=== PATIENT | female | born 1970 | race Caucasian/White ===

== ENCOUNTER 2022-03-23 13:45 | Emergency (ER) | payer OTHER, SELFPAY ==
--- NOTE | ~2022-03-23 | XR_ITS ---
EXAMINATION: XR SHOULDER, LEFT CLINICAL INFORMATION: Bruising to the right upper humerus COMPARISON: None TECHNIQUE: AP external rotation, Grashey, scapular Y, and axillary views of the left shoulder. FINDINGS: Comminuted, significantly displaced left humeral neck fracture. The humeral head is dislocated posteriorly. Multiple small bone fragments in the region. XR/XR shoulder LT min 2V IMPRESSION: Severe left humeral neck fracture.
--- NOTE | ~2022-03-23 | XR_ITS ---
EXAMINATION: XR SHOULDER, RIGHT CLINICAL INFORMATION: Bruising to the upper humeral COMPARISON: None TECHNIQUE: AP external rotation, Grashey, scapular Y, and axillary views of the right shoulder. FINDINGS: Severe humeral neck/head fracture with multiple comminuted fragments. The humeral head is dislocated posteriorly. The acromioclavicular joint is intact. XR/XR shoulder RT min 2V IMPRESSION: Severe right humeral head/neck fracture with the humeral head dislocated posteriorly.
[2022-03-23 13:50] VITALS: BP 126/66; BP 152/92; PULSE 89; PULSE 90; RESP 17; TEMP 36.7; O2SAT 98; BMI 32.8
--- NOTE | 2022-03-23 15:36 | ED.GENADULT ---
HPI - General Adult General Chief complaint: Fall Stated complaint: ALEX SHOULDER PAIN S/P FALL OFF COUCH T-1 PER EMS Time Seen by Provider: 03/23/22 15:36 Source: patient and EMS Mode of arrival: EMS Limitations: no limitations History of Present Illness HPI narrative: Pt is 51 yo female w/ uncontibutory PMHx presenting w/ bilat shoulder pain x12 hrs post fall. She states that she was sleeping on the couch and suddenly woke up on the floor around 4:30 AM. She states that she does not remember falling and did not wake up until after the fall had occurred. She reports that she has a hx of sleepwalking but her episodes are infrequent. She states that the only complaint she has is pain in both of her shoulders. She denies headache, dizziness, lightheadedness, abd pain, or injury to any other area of her body. She states that everything makes her pain worse, and that she gets mild relief if she can completely relax all of the muscles in her arms. She denies any use of medications for pain. She denies numbness/tingling in either of her arms. She is not able to move either arm secondary to pain. She denies any hx surgery to either arm. She denies use of anticoagulants. Onset (ago): hour(s) (12) Location: upper extremity (bilateral) Radiation: non-radiation Severity: moderate Severity scale (1-10): 6 Quality: aching and sharp Pain Consistency: constant Relieving factors: rest Exacerbating factors: movement Associated symptoms: denies other symptoms Treatments prior to arrival: none Related Data Allergies Allergy/AdvReac Type Severity Reaction Status Date / Time No Known Allergies Allergy Verified 03/23/22 15:52 Review of Systems Constitutional: Constitutional: Reports no additional constitutional complaints, Denies chills, Denies fever(s) and Denies night sweats Eyes: Eyes: Reports no additional eye complaints, Denies blurry vision, Denies change in vision, Denies diplopia, Denies eye discharge, Denies loss of vision and Denies eye pain ENT: Denies dizziness Cardiovascular: Cardiovascular: Reports no additional cardiovascular complaints, Denies chest pain, Denies lightheadedness, Denies Loss of Consciousness and Denies dyspnea Respiratory: Respiratory: Reports no additional respiratory complaints and Denies dyspnea Gastrointestinal: Gastrointestinal: Reports no additional gastrointestinal complaints, Denies abdominal pain, Denies melena, Denies hematochezia, Denies change in bowel habits and Denies change in stool character Genitourinary: Genitourinary: Denies hematuria, Denies urinary frequency, Denies dysuria, Denies urinary incontinence, Denies urinary hesitancy and Denies urinary urgency Musculoskeletal: Musculoskeletal: Reports no additional musculoskeletal complaints, Denies numbness and Denies tingling Comments: bilateral shoulder pain Neurologic: Denies dizziness, Denies loss of vision, Denies numbness and Denies tingling Psychiatric: Psychiatric: Reports no additional psychiatric complaints Endocrine: Endocrine: Reports no additional endocrine complaints Hematologic/Lymphatic: Hematologic/Lymphatic: Reports no additional hematologic/lymphatic complaints Allergic/Immunologic: Allergic/Immunologic: Reports no additional allergic/immunologic complaints PMFSH Past Medical History Attestation statement: The following information was validated with the patient. Source: old records reviewed Social History Social History Advance Directives: No Physical Exam ED Vital Signs: Vital Signs - 24 hr 03/23/22 13:50 03/23/22 15:57 03/23/22 16:00 Temperature 98.1 F 98.6 F Pulse Rate 89 94 89 Respiratory Rate 17 20 16 Blood Pressure 152/92 H 153/86 H 152/94 H Pulse Oximetry 98 97 98 Oxygen Delivery Method Room Air Room Air Room Air BMI result Body Mass Index 32.8 Const General: cooperative, no acute distress, alert and awake Nutritional Appearance: well nourished Orientation/consciousness: patient oriented x3 Limitations: no limitations [facility] Head: Yes normal to inspection and Yes atraumatic Ears: hearing grossly normal bilaterally and external ears normal General nose exam: Normal external nose present, no nasal discharge noted and no epistaxis Face and sinus: Yes normal facial exam, No abrasion and No laceration Mouth: Normal oral and palatal mucosa present, no drooling and no muffled voice Eyes General: appearance normal, both eyes and all related structures Periorbital: periorbital findings normal Eyelids: Yes eyelids normal Conjunctivae: conjunctivae normal Pupils: Equal, round and reactive pupils present EOM: EOMs intact bilaterally Neck Neck: Yes normal visual inspection, Yes full ROM and Yes no lymphadenopathy Chest Chest palpation & inspection: normal inspection of the chest Resp Effort & Inspection: normal respiratory effort and able to speak in complete sentences Auscultation: clear to auscultation bilaterally Cardio Rate: regular rate Rhythm: regular rhythm GI Inspection: Yes normal to inspection Neuro General: patient oriented x3 and moves all extremities Cranial nerves: Yes Equal, round and reactive pupils present Cognition (Neuro): normal cognition Motor exam (neuro): 5/5 motor strength present throughout Sensory Exam: Normal double simultaneous stimulation for sensation Coordination: [id number] test normal Extrem Other: mild bruising to bilateral upper arms, decreased ROM of bilateral upper arms secondary to pain. General: Yes capillary refill normal Psych Appearance: grossly normal Mental Status: mental status grossly normal Affect: normal affect Attitude: cooperative Thought process: Normal thought process present Thought content: Normal thought content present Insight: Good insight present (Psych) Medications Administered Discontinued Medications Generic Name Dose Route Start Last Admin Trade Name Freq PRN Reason Stop Dose Admin Hydrocodone Bitart/Acetaminophen 1 tab 03/23/22 15:52 03/23/22 15:59 Hydrocodone Bit/Acetam 5/325 Tablet PO 03/23/22 15:53 1 tab ONCE ONE Administration Procedures Orthopedic Splinting/Casting Injury #1: Side: right Upper Extremity Injury Location: shoulder Upper Extremity Immobilizer: sling/shoulder immobilizer Injury #2: Side: left Upper Extremity Injury Location: shoulder Upper Extremity Immobilizer: sling/shoulder immobilizer Medical Decision Making [facility] Narrative Medical decision making narrative: Patient is a 51 year old assigned female at with a history of sleep walking presenting to the emergency department today with bilateral shoulder pain. Patient's physical exam showed minimal bruising to bilateral upper arms with minimal ROM of the upper arms secondary to pain. Patient's circulation, strength, and sensation was in tact to both upper extremities. Patient's right shoulder x-ray showed a severe right humeral head/neck fracture with the humeral head dislocated posteriorly. Patient's left shoulder x-ray showed a comminuted, significantly displaced, left humeral neck fracture with the humeral head dislocated posteriorly and multiple small bone fragments in the region. I again spoke with the patient and her live in boyfriend at the bed side who both confirmed, together and separately, the mechanism of the patient's injury. I explained to them both that this mechanism is not consistent with the injuries the patient has sustained. They both adamantly deny any other explanation for the injuries. I spoke to the orthopedic provider low emission automobile designer who recommended each arm be placed in a sling and the patient be evaluated by physical therapy for potential rehab placement and that they follow up on an outpatient basis with the orthopedic group. I explained my physical exam findings as well as all test results to the patient and the patient's boyfriend. I answered all questions asked by the patient and the patient's boyfriend. Patient verbalized agreement and understanding with this treatment plan and being evaluated by physical therapy. Medical Records Medical records reviewed: Yes I reviewed the patient's medical records. Imaging Data Left shoulder x-ray: Attestation: I personally reviewed and interpreted this imaging study as follows: My impression: Humeral fracture. Radiologist's impression: EXAMINATION: XR SHOULDER, LEFT CLINICAL INFORMATION: Bruising to the right upper humerus? COMPARISON: None? TECHNIQUE: AP external rotation, Grashey, scapular Y, and axillary views of the left shoulder. FINDINGS: Comminuted, significantly displaced left humeral neck fracture. The humeral head is dislocated posteriorly. Multiple small bone fragments in the region. XR/XR shoulder LT min 2V IMPRESSION: Severe left humeral neck fracture. Dictated By: Liliam Crespo MD Signed By: Electronically signed by Liliam Crespo MD 03/23/22 1637 Right shoulder x-ray: Attestation: I personally reviewed and interpreted this imaging study as follows: My impression: Humeral fracture. Radiologist's impression: EXAMINATION: XR SHOULDER, RIGHT CLINICAL INFORMATION: Bruising to the upper humeral? COMPARISON: None? TECHNIQUE: AP external rotation, Grashey, scapular Y, and axillary views of the right shoulder. FINDINGS: Severe humeral neck/head fracture with multiple comminuted fragments. The humeral head is dislocated posteriorly. The acromioclavicular joint is intact. XR/XR shoulder RT min 2V IMPRESSION: Severe right humeral head/neck fracture with the humeral head dislocated posteriorly. Dictated By: Liliam Crespo MD Signed By: Electronically signed by Liliam Crespo MD 03/23/22 7321 Discharge Plan Discharge Clinical Impression: Fracture of humeral head, right, closed, Fracture of humeral head, left, closed Patient Disposition: Still a Patient Print Language: Arabic
[2022-03-23 15:57] VITALS: BP 153/86; PULSE 94; RESP 20; O2SAT 97
[2022-03-23] MEDS: HYDROcodone Bit/Acetam 5/325 TABLET 1 TAB PO (15:59)
[2022-03-23 16:00] VITALS: BP 152/94; PULSE 89; RESP 16; TEMP 37; O2SAT 98
--- NOTE | 2022-03-23 17:10 | PC.NURSE ---
Provider aware of BP
--- NOTE | 2022-03-23 17:38 | PC.NURSE ---
oxycodone not loaded in pyxis. Pharmacy notifed.
[2022-03-23 17:39] LABS: COVID-19 Test Negative (Negative); IDNOW Serial# 16C4AD1C
[2022-03-23] MEDS: oxyCODONE HCl Immed Release 15 MG TABLET PO (17:47)
[2022-03-23 20:22] VITALS: BP 131/73; PULSE 96; RESP 17; TEMP 37; O2SAT 94
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
--- NOTE | 2022-03-23 22:00 | PC.NURSE ---
Patient to and from restroom with steady gait- she needs 1-assist to help her pull her pants/underpants down/up.
[2022-03-23 22:41] VITALS: BP 146/91; PULSE 88; TEMP 37.2; O2SAT 98
[2022-03-23 22:46] VITALS: BP 165/93; RESP 26
--- NOTE | 2022-03-23 22:48 | PC.NURSE ---
Patient states she was on the couch last night and woke up on the floor. She does not recall how she may have fallen. Patient states she drinks multiple alcoholic drinks (hard liquor) daily and that may have been the cause of her fall. Patient is calm and cooperative.
[2022-03-23] MEDS: oxyCODONE HCl Immed Release 5 MG TABLET PO (23:13)
[2022-03-24] VITALS (7 sets, daily range): BP systolic 138–193; BP diastolic 76–105; PULSE 85–101; RESP 12–17; TEMP 37–37.3; O2SAT 94–97
[2022-03-24] MEDS: oxyCODONE HCl Immed Release 5 MG TABLET PO ×4 (03:34→21:01)
--- NOTE | 2022-03-24 04:43 | PC.NURSE ---
Patient resting quietly, no apparent distress, currently watching tv
[2022-03-24] MEDS: Loratadine 10 MG TABLET PO ×2 (08:43→21:01)
--- NOTE | 2022-03-24 10:16 | MHC.CM.ED ---
Patient remains in ER. Physical therapy eval completed. Rehab is recommended. [facility] is not able to offer a bed. Clinical updates sent to Miguel. Continue to monitor for d/c needs.
--- NOTE | 2022-03-24 11:43 | PC.NURSE ---
Alert and oriented, respirations even and unlabored. Pt resting in bed watching tv. Ambulates with 1 assistance
--- NOTE | 2022-03-24 19:45 | PC.NURSE ---
Pt requesting Tylenol. Attending MD notified, order placed. Pt has no other complaints at this time.
[2022-03-24] MEDS: Acetaminophen 325 MG TABLET 650 MG PO (19:55)
[2022-03-24] MEDS: Cyanocobalamin (Vitamin B-12) 1,000 MCG TABLET 1000 MCG PO (21:00)
[2022-03-24] MEDS: Omeprazole 20 MG CAPSULE.DR PO (21:00)
--- NOTE | 2022-03-24 22:25 | P.CONOP_ITS ---
History of Present Illness HPI Consult date: 03/24/22 Chief complaint: ALEX SHOULDER PAIN S/P FALL OFF COUCH T-1 PER EMS Narrative: 51 yo female presented to the ED with bilat shoulder pain. She states one day prior she woke up at 0400 on the floor with extreme shoulder pain. She states sh e fell twice, but cannot recall how she fell, if it was one fall after the other, or any other details leading up to the fall. While in the ED, xrays of the shoulders were significant for right proximal humerus fracture and left proximal humerus fracture with displaced of the humeral head posteriorly. 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 She lives at home with her boyfriend. Review of Systems Review of Systems: per [facility] Social History Social History Alcohol intake: current Alcohol intake frequency: 3 or more drinks per day Alcohol type: hard liquor Smoked in Last 30 Days: Yes Use of substances other than those prescribed or required for medical reasons: No Advance Directives: No Meds Allergies Allergy/AdvReac Type Severity Reaction Status Date / Time No Known Allergies Allergy Verified 03/23/22 15:52 Active Medications: Current Medications Acetaminophen (Acetaminophen 325 Mg Tablet) 650 mg PO Q6H PRN PRN Reason: Pain, Moderate (Pain Scale 4-6 Last Admin: 03/24/22 19:55 Dose: 650 mg Cyanocobalamin (Cyanocobalamin (Vitamin B-12) 1,000 Mcg Tablet) 1,000 mcg PO BEDTIME [facility] Last Admin: 03/24/22 21:00 Dose: 1,000 mcg Loratadine (Loratadine 10 Mg Tablet) 10 mg PO BEDTIME [facility] Last Admin: 03/24/22 21:01 Dose: 10 mg Non-Formulary Medication (Zolmitriptan) 5 mg PO DAILY MRX1 PRN PRN Reason: Migraine Headache Omeprazole (Omeprazole 20 Mg Capsule.Dr) 20 mg PO BEDTIME [facility] Last Admin: 03/24/22 21:00 Dose: 20 mg Oxycodone HCl (Oxycodone Hcl Immed Release 5 Mg Tablet) 5 mg PO Q6H PRN PRN Reason: Pain, Moderate (Pain Scale 4-6 Last Admin: 03/24/22 21:01 Dose: 5 mg Pharmacy Consult (Consult Rx Perform Med Rec) 1 each MISCELLANE ONCE PRN PRN Reason: Consult order Home Medications Medication Instructions Recorded Confirmed Last Taken Type cetirizine 10 mg tablet (Zyrtec) 10 mg PO BEDTIME 03/23/22 03/23/22 03/22/22 History cyanocobalamin (vitamin B-12) 1,000 mcg PO BEDTIME 03/23/22 03/23/22 03/22/22 History 1,000 mcg tablet omeprazole 20 mg tablet,delayed 20 mg PO BEDTIME 03/23/22 03/23/22 03/22/22 History release zolmitriptan 5 mg tablet 5 mg PO DAILY MRX1 PRN Migraine 03/23/22 03/23/22 Unkno wn History Headache Physical Exam Vital Signs: Vital Signs: Last Vital Signs Temp 98.7 F 03/24/22 18:13 Pulse 85 03/24/22 18:13 Resp 14 03/24/22 18:13 BP 193/105 H 03/24/22 18:13 Pulse Ox 97 03/24/22 18:13 O2 Del Method 03/24/22 18:13 BMI result Body Mass Index 32.8 Const: General: cooperative, healthy appearing, comfortable and no acute distress Extrem: Other: bilat shoulder normal to inspection with slings intact. Swelling and tenderness over the proximal humerus. Anterior deltoid sensation intact. Elbow and wrist ROM intact. NVI. Results Labs Labs: All other labs normal. Assessment and Plan (1) Fracture of humeral head, right, closed: Status: Acute (2) Fracture of humeral head, left, closed: Status: Acute Plan At this time we will continue to treat this non-operatively with a sling. She can remove the sling for pendulum exercises on the right shoulder. The left shoulder should remain in a sling and she can come out of the sling to left the arm hand by her side. She should not bring either shoulder / arm away from her body in any position x6 weeks. She can work on PROM on the right shoulder to chris cisneros. She can work on periscap stabilization and postural training. I would like to see her in the office this coming week to further discuss treatment options on the left shoulder given the amount of displacement of the humeral head and potential for poor function. She is content with this plan and all questions have been answered. Procedures Date of Service Date of Service: 03/24/22
--- NOTE | 2022-03-25 00:27 | PC.NURSE ---
pt sleeping at this time, respirations regular.
--- NOTE | 2022-03-25 02:52 | PC.NURSE ---
Pt resting watching TV at this time. Pt has no needs at this time.
[2022-03-25] MEDS: oxyCODONE HCl Immed Release 5 MG TABLET PO ×4 (03:19→21:19)
--- NOTE | 2022-03-25 05:01 | PC.NURSE ---
Pt sleeping at this time, respirations regular.
[2022-03-25 06:35] VITALS: BP 140/90; PULSE 93; RESP 16; TEMP 37.1; O2SAT 95
--- NOTE | 2022-03-25 07:54 | PC.NURSE ---
pt assisted to eat breakfast, ambulated to the bathroom with assistance. reports some pain but aware she is waiting for oxycodone. denies having any questions at this time. states surgery vs STR
[2022-03-25] MEDS: Acetaminophen 325 MG TABLET 650 MG PO ×3 (09:01→21:19)
--- NOTE | 2022-03-25 13:42 | PC.NURSE ---
visitor remains at bedside. aware of plan of care and denied having any questions.
[2022-03-25 13:45] VITALS: BP 103/89; PULSE 99; RESP 16; O2SAT 96
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
--- NOTE | 2022-03-25 17:26 | PC.NURSE ---
pt declined blood work and urine testing.
--- NOTE | 2022-03-25 17:54 | PC.NURSE ---
daughter alicia requesting [facility] for STR
[2022-03-25 20:57] VITALS: BP 162/77; PULSE 99; RESP 20; TEMP 37.4; O2SAT 96
[2022-03-25] MEDS: Omeprazole 20 MG CAPSULE.DR PO (21:16)
[2022-03-25] MEDS: Loratadine 10 MG TABLET PO (21:16)
[2022-03-25] MEDS: Cyanocobalamin (Vitamin B-12) 1,000 MCG TABLET 1000 MCG PO (21:16)
--- NOTE | 2022-03-25 23:44 | PC.NURSE ---
Pt assisted in restroom with sanitary care, positioned for comfort in bed.
[2022-03-26] MEDS: oxyCODONE HCl Immed Release 5 MG TABLET PO ×4 (04:11→23:09)
[2022-03-26] MEDS: Acetaminophen 325 MG TABLET 650 MG PO ×4 (04:11→23:10)
[2022-03-26 06:00] VITALS: BP 135/77; PULSE 76; RESP 16; TEMP 36.4; O2SAT 95
[2022-03-26 08:25] VITALS: BP 164/79; PULSE 87; RESP 20; TEMP 37.1; O2SAT 96
--- NOTE | 2022-03-26 08:27 | PC.NURSE ---
patient a&ox3, bilateral sling intact, pt has +csm/pulses in bue, pt states she has 7/10 pain but feels her pain is being adequately managed with the meds she has been getting, this nurse told the patient if she feels she needed additional medication that we could notify provider, pt isnt due for additional medication until 1011 am and is currently 7/10. ciwa is 0, call jang within reach, will continue to monitor
--- NOTE | 2022-03-26 11:00 | PC.NURSE ---
patient c/o 01/06 pain, pt medicated with pain meds per order, will continue to monitor
[2022-03-26 15:52] VITALS: BP 177/93; PULSE 100; TEMP 37.1; O2SAT 96
--- NOTE | 2022-03-26 16:59 | MHC.CM.ED ---
CM reviewed all bed offers with patient for STR. Pt chose [facility]. Bed accepted in [facility] with request to go for auth. Pt aware may take 1-2 days for auth with [facility].
--- NOTE | 2022-03-26 18:19 | PC.NURSE ---
Assumed patient care at 1500. Patient alert and oriented x3. Making needs known. Arms in bilateral slings. Assisted with feeding/toileting as needed. Pain meds given per EMAR. All needs met at this time.
[2022-03-26] MEDS: Loratadine 10 MG TABLET PO (20:50)
[2022-03-26] MEDS: Cyanocobalamin (Vitamin B-12) 1,000 MCG TABLET 1000 MCG PO (20:50)
[2022-03-26] MEDS: Omeprazole 20 MG CAPSULE.DR PO (20:50)
[2022-03-27 00:44] VITALS: BP 152/87; PULSE 89; RESP 16; TEMP 36.9; O2SAT 97
[2022-03-27] MEDS: Acetaminophen 325 MG TABLET 650 MG PO ×2 (05:17→11:26)
[2022-03-27] MEDS: oxyCODONE HCl Immed Release 5 MG TABLET PO ×2 (05:18→11:26)
[2022-03-27 07:46] VITALS: BP 173/99; PULSE 90; RESP 20; O2SAT 94
[2022-03-27 10:57] VITALS: BP 173/99; PULSE 90; O2SAT 94
[2022-03-27 11:20] LABS: COVID-19 Test Negative (Negative); IDNOW Serial# BCCEAD1C
--- NOTE | 2022-03-27 11:28 | PC.NURSE ---
medicated as ordered for pain, ambulates w steady gait, met w pt this morning, watching tv and sipping water
--- NOTE | 2022-03-27 11:32 | MHC.CM.ED ---
Patient remains in ER overflow. [place] submitted for insurance auth with [facility]. [facility] requesting additional PT note. Updated PT note sent to [place]. Neg Covid swab also sent. Continue to monitor for d/c needs.
--- NOTE | 2022-03-27 14:54 | PC.NURSE ---
ate lunch, currently doing excercises recommended by pt/ot, assisted in bathroom by staff
--- NOTE | 2022-03-27 15:07 | MHC.CM.ED ---
[facility] has obtained insurance auth. [facility] booked for 6pm. Med nec with chart. Patient, Kamran RN and Lorna OLIVO aware. Continue to monitor for d/c needs.
--- NOTE | 2022-03-27 15:31 | PC.NURSE ---
this rn assumed care of this pt at 1500, pt sitting up in bed at the time of assuming care. the pt's daughter called for update on her discharge. pt's daughter stated I was hoping to find out that something was medically wrong because I don't understand why she keeps falling . pt schedule for transport to short term rehab sometime this evening. pt's daughter aware of plan.
== END 2022-03-27 16:47 | disposition skilled nursing facility (03) ==
PROVIDERS: Physician Assistant; Physician Assistant Medical; Emergency Provider Physician Assistant; PCP Nurse Practitioner Adult Health
DX: S42.292A Other displaced fracture of upper end of left humerus, initial encounter for closed fracture (principal); S42.291A Other displaced fracture of upper end of right humerus, initial encounter for closed fracture; W08.XXXA Fall from other furniture, initial encounter; Z20.822 Contact with and (suspected) exposure to COVID-19; Y93.84 Activity, sleeping; Y92.018 Other place in single-family (private) house as the place of occurrence of the external cause; Y99.9 Unspecified external cause status
CPT/HCPCS: 73030; 87635; 97161; 97530; 99285

== ENCOUNTER 2022-04-02 13:27 | Outpatient (REF) | payer OTHER, SELFPAY ==
--- NOTE | ~2022-04-02 | XR_ITS ---
EXAMINATION: BILATERAL SHOULDER CLINICAL INFORMATION: Pain. COMPARISON: None TECHNIQUE: 2 views each shoulder FINDINGS: Left shoulder: There is comminuted fracture and dislocation left humeral neck. The head is dislocated an anteverted inferiorly. There is no fracture seen involving the glenoid. The AC joint space is maintained with mild inferior spurring. The soft tissues are normal. Right shoulder: There is comminuted right humeral neck fracture with lateral subluxation of humeral head in relation to glenoid.. The soft tissues are normal. There is mild arthritic changes of right AC joint. The soft tissues are normal. XR/XR shoulder RT min 2V IMPRESSION: Comminuted fracture and dislocation left shoulder with inversion of left humeral head in relation to the glenoid. Comminuted fracture right humeral neck with lateral subluxation of humeral head. Bilateral AC joint arthritic changes.
--- NOTE | ~2022-04-02 | XR_ITS ---
EXAMINATION: BILATERAL SHOULDER CLINICAL INFORMATION: Pain. COMPARISON: None TECHNIQUE: 2 views each shoulder FINDINGS: Left shoulder: There is comminuted fracture and dislocation left humeral neck. The head is dislocated an anteverted inferiorly. There is no fracture seen involving the glenoid. The AC joint space is maintained with mild inferior spurring. The soft tissues are normal. Right shoulder: There is comminuted right humeral neck fracture with lateral subluxation of humeral head in relation to glenoid.. The soft tissues are normal. There is mild arthritic changes of right AC joint. The soft tissues are normal. XR/XR shoulder LT min 2V IMPRESSION: Comminuted fracture and dislocation left shoulder with inversion of left humeral head in relation to the glenoid. Comminuted fracture right humeral neck with lateral subluxation of humeral head. Bilateral AC joint arthritic changes.
== END 2022-04-02 13:28 | disposition home or self-care (01) ==
LOC: HO.HOSX 13:27
PROVIDERS: Visit Provider Physician Assistant
DX: M25.511 Pain in right shoulder (principal); M25.512 Pain in left shoulder
CPT/HCPCS: 73030

== ENCOUNTER 2022-04-24 09:21 | Outpatient (REF) | payer OTHER, SELFPAY | END 2022-04-24 09:22 | disposition home or self-care (01) | LOC: HO.HOSX 09:21 | PROVIDERS: Visit Provider Physician Assistant | DX: Z13.89 Encounter for screening for other disorder (principal) ==

== ENCOUNTER 2022-04-26 17:11 | Outpatient (REF) | payer OTHER, SELFPAY ==
--- NOTE | ~2022-04-26 | XR_ITS ---
EXAMINATION: XR SHOULDER, BILATERAL CLINICAL INFORMATION: Bilateral comminuted fractures of humeral neck. COMPARISON: Bilateral shoulders 04/02/2022. TECHNIQUE: 2 views each shoulder. FINDINGS: RIGHT SHOULDER. There is a chronic comminuted right humeral neck fracture with lateral subluxation of right humeral head. It is unchanged. There is moderate callus formation seen along the lateral humeral head and neck. The soft tissues are normal. LEFT SHOULDER: There is a transverse fracture left humeral neck with dislocation of the head. Mild soft tissue swelling. XR/XR shoulder LT min 2V IMPRESSION: No significant change in the comminuted fracture right humeral neck without dislocation. No change in fracture or dislocation left shoulder compared to previous exam 04/02/2022.
--- NOTE | ~2022-04-26 | XR_ITS ---
EXAMINATION: XR SHOULDER, BILATERAL CLINICAL INFORMATION: Bilateral comminuted fractures of humeral neck. COMPARISON: Bilateral shoulders 04/02/2022. TECHNIQUE: 2 views each shoulder. FINDINGS: RIGHT SHOULDER. There is a chronic comminuted right humeral neck fracture with lateral subluxation of right humeral head. It is unchanged. There is moderate callus formation seen along the lateral humeral head and neck. The soft tissues are normal. LEFT SHOULDER: There is a transverse fracture left humeral neck with dislocation of the head. Mild soft tissue swelling. XR/XR shoulder RT min 2V IMPRESSION: No significant change in the comminuted fracture right humeral neck without dislocation. No change in fracture or dislocation left shoulder compared to previous exam 04/02/2022.
== END 2022-04-26 17:12 | disposition home or self-care (01) ==
LOC: HO.HOSX 17:11
PROVIDERS: Visit Provider Physician Assistant
DX: S42.292A Other displaced fracture of upper end of left humerus, initial encounter for closed fracture (principal); S42.291A Other displaced fracture of upper end of right humerus, initial encounter for closed fracture
CPT/HCPCS: 73030

== ENCOUNTER 2022-06-07 13:05 | Outpatient (REF) | payer OTHER, SELFPAY ==
--- NOTE | ~2022-06-07 | XR_ITS ---
EXAMINATION: BILATERAL SHOULDER X-RAY CLINICAL INFORMATION: Pain COMPARISON: Previous x-rays most recent March 2022 TECHNIQUE: 2 views of each shoulder FINDINGS: Left: There is no change in the fracture of the left proximal humerus. Fracture line is still seen. There is lateral segment of the humeral head with respect to the remainder humerus. There and some impaction. There is a surrounding bony callus formation that appears unchanged. 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 Right: There is an impacted comminuted right proximal humerus fracture. Fracture line still seen. Alignment is unchanged. There is surrounding bony callus formation. Normal acromioclavicular joint. Normal soft tissues. XR/XR shoulder RT min 2V IMPRESSION: No change in bilateral proximal humeral fractures from recent exam.
--- NOTE | ~2022-06-07 | XR_ITS ---
EXAMINATION: BILATERAL SHOULDER X-RAY CLINICAL INFORMATION: Pain COMPARISON: Previous x-rays most recent March 2022 TECHNIQUE: 2 views of each shoulder FINDINGS: Left: There is no change in the fracture of the left proximal humerus. Fracture line is still seen. There is lateral segment of the humeral head with respect to the remainder humerus. There and some impaction. There is a surrounding bony callus formation that appears unchanged. 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 Right: There is an impacted comminuted right proximal humerus fracture. Fracture line still seen. Alignment is unchanged. There is surrounding bony callus formation. Normal acromioclavicular joint. Normal soft tissues. XR/XR shoulder LT min 2V IMPRESSION: No change in bilateral proximal humeral fractures from recent exam.
== END 2022-06-07 13:06 | disposition home or self-care (01) ==
LOC: HO.HOSX 13:05
PROVIDERS: Visit Provider Orthopaedic Surgery
DX: S42.292D Other displaced fracture of upper end of left humerus, subsequent encounter for fracture with routine healing (principal); W07.XXXD Fall from chair, subsequent encounter
CPT/HCPCS: 73030

== ENCOUNTER 2022-07-09 12:14 | Outpatient (REF) | payer OTHER, SELFPAY ==
--- NOTE | ~2022-07-09 | XR_ITS ---
EXAMINATION: BILATERAL SHOULDER. CLINICAL INFORMATION: Follow-up humeral neck fracture. COMPARISON: None TECHNIQUE: 2 views. FINDINGS: There is moderate bridging callus formation seen between the humeral head and the proximal humerus. There is a overriding fracture of the proximal humerus. No dislocation visualized. The AC joint appears unremarkable. XR/XR shoulder RT min 2V IMPRESSION: Moderate bridging callus formation between the humeral head and the proximal humerus with known overriding fracture of the proximal humerus. No dislocation seen. No major change compared to 06/07/2022
--- NOTE | ~2022-07-09 | XR_ITS ---
EXAMINATION: BILATERAL SHOULDER. CLINICAL INFORMATION: Follow-up humeral neck fracture. COMPARISON: None TECHNIQUE: 2 views. FINDINGS: There is moderate bridging callus formation seen between the humeral head and the proximal humerus. There is a overriding fracture of the proximal humerus. No dislocation visualized. The AC joint appears unremarkable. XR/XR shoulder LT min 2V IMPRESSION: Moderate bridging callus formation between the humeral head and the proximal humerus with known overriding fracture of the proximal humerus. No dislocation seen. No major change compared to 06/07/2022
== END 2022-07-09 12:15 | disposition home or self-care (01) ==
LOC: HO.HOSX 12:14
PROVIDERS: Visit Provider Orthopaedic Surgery
DX: S42.201A Unspecified fracture of upper end of right humerus, initial encounter for closed fracture (principal); S42.202A Unspecified fracture of upper end of left humerus, initial encounter for closed fracture; Z91.81 History of falling
CPT/HCPCS: 73030

== ENCOUNTER 2022-10-01 14:00 | Outpatient (RCR) | payer OTHER, SELFPAY ==
--- NOTE | 2022-10-22 13:16 | MHC.PT.DC ---
[facility] [place] [facility] [place] [facility] [place] [facility] [address] Umair Reyes [address] [phone] F: [phone] F: [phone] F: [phone] F: [phone] Physical Therapy Discharge Report Diagnosis: ALEX DISPLACED HUMERAL FRACTURES (KP) Date of Surgery: NA Date of Evaluation: 05/09/22 Date of Discharge: 10/22/22 Treatments to Date: 16 Cancellations to Date: 0 No Shows to Date: 0 Discharge Status: Achieved Goals Improved Function Independent with HEP Discharge Summary: D/C today I with HEP. Pt has met current STGs and is continuing to do well with HEP. Pt will return PO shoulder repair. Electronically signed by: Jordyn Torres PT DPT Please sign and return to therapist. Thank you for your referral.
== END 2022-10-22 13:16 | disposition home or self-care (01) ==
LOC: HO.PT 14:00
PROVIDERS: PCP Family Medicine; Visit Provider Physician Assistant
DX: S42.291A Other displaced fracture of upper end of right humerus, initial encounter for closed fracture (principal); S42.292A Other displaced fracture of upper end of left humerus, initial encounter for closed fracture
CPT/HCPCS: 97110; 97140; 97162

== ENCOUNTER 2023-09-04 12:00 | Outpatient (RCR) | payer OTHER, SELFPAY | END 2023-09-04 14:12 | disposition home or self-care (01) | LOC: HO.PT 12:00 | PROVIDERS: PCP Family Medicine; Visit Provider Orthopaedic Surgery | DX: S42.291P Other displaced fracture of upper end of right humerus, subsequent encounter for fracture with malunion (principal); Z96.611 Presence of right artificial shoulder joint | CPT/HCPCS: 97110; 97140; 97162; 97530 ==

== ENCOUNTER 2024-01-08 14:00 | Outpatient (RCR) | payer OTHER, SELFPAY | END 2024-01-15 13:20 | disposition home or self-care (01) | LOC: HO.PT 14:00 | PROVIDERS: PCP Family Medicine; Visit Provider Orthopaedic Surgery | DX: Z96.611 Presence of right artificial shoulder joint (principal) | CPT/HCPCS: 97110; 97112; 97161 ==